=== PATIENT | male | born 1990 | race Hispanic/Latino ===

== ENCOUNTER 2019-05-30 16:04 | Emergency (ER) | payer SELFPAY ==
[2019-05-30] MEDS ORDERED: TETANUS & DIPHTHERIA TOX,ADULT 0.5 ML VIAL ONE (17:08)
[2019-05-30] MEDS ORDERED: LIDOCAINE 1% MPF 5 ML VIAL ONE (17:13)
--- NOTE | 2019-05-30 18:13 | EDPHYS ---
Physician Documentation [facility] Name: Kiel Núñez Age: 29 yrs Sex: Male : 1990 Arrival Date: 05/30/2019 Time: 16:09 Bed 23 Private MD: ED Physician Meño Elder HPI: 05/30 17:08 This 29 yrs old Male presents to ER via Ambulatory with complaints of jmm Laceration To Lip. 17:08 The patient or guardian reports injury. The complaints affect the right upper lip. jmm Onset: The symptoms/episode began/occurred acutely. This is a 29 year old male with no chronic medical conditions that presents to the ED with complaints of laceration to his right inner upper lip. Patient states his face hit a wedge while working under his truck. Denies LOC, denies vomiting. . Historical: - Allergies: 16:13 No Known Allergies; la1 - PMHx: 16:13 None; la1 - Immunization history:: Adult Immunizations up to date. - Social history:: Smoking status: Patient/guardian denies using tobacco. - Ebola Screening: : No symptoms or risks identified at this time. ROS: 17:08 Constitutional: Negative for fever, chills, and weight loss, Cardiovascular: Negative jmm for chest pain, palpitations, and edema, Respiratory: Negative for shortness of breath, cough, wheezing, and pleuritic chest pain. 17:08 Skin: Positive for laceration(s). 17:08 Neuro: Negative for altered mental status, loss of consciousness. 17:08 All other systems are negative. Exam: 17:08 Constitutional: This is a well developed, well nourished patient who is awake, alert, jmm and in no acute distress. 17:08 Eyes: EOMI, no conjunctival erythema appreciated ENT: Moist Mucus Membranes Neck: Trachea midline, Supple Chest/axilla: Normal chest wall appearance and motion. Cardiovascular: Regular rate and rhythm. No edema appreciated Respiratory: Normal respirations, no respiratory distress appreciated Back: Normal ROM Skin: General appearance color normal 17:08 MS/ Extremity: Moves all extremities, no obvious deformities appreciated, no edema noted to the lower extremities Neuro: Awake and alert, normal gait Psych: Behavior is normal, Mood is normal, Patient is cooperative and pleasant 17:08 Head/face: .5 cm laceration noted to the right upper lip. 17:08 ENT: 2 cm laceration noted to the right upper lip mucosa, no active bleeding is appreciated. Vital Signs: 16:13 BP 146 / 99; Pulse 71; Resp 16; Temp 97.1; Pulse Ox 100% on R/A; la1 18:19 BP 132 / 78; Pulse 72; Resp 18; Temp 98.5; Pulse Ox 100% on R/A; mg2 Laceration: 18:09 Wound Repair of 2cm ( 0.8in ) subcutaneous laceration to upper lip. Distal m neuro/vascular/tendon intact. Anesthesia: Local anesthetic administered with 2 mls of 1% lidocaine. Wound prep: Simple cleansing with betadine by me. Skin closed with 4 5-0 fast absorbing gut using simple sutures and sterile technique. Patient tolerated well. MDM: 17:08 Patient medically screened. [facility] 18:09 Data reviewed: vital signs, nurses notes. Counseling: I had a detailed discussion with [facility] the patient and/or guardian regarding: the historical points, exam findings, and any diagnostic results supporting the discharge/admit diagnosis, the need for outpatient follow up, to return to the emergency department if symptoms worsen or persist or if there are any questions or concerns that arise at home. ED course: Patient given wound infection return precautions. . 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 Exp: mg2 01/02/2021. Lot #: [id number]. } Route: IM; Site: right deltoid; 18:04 Follow up: Response: No adverse reaction mg2 17:55 Drug: Lidocaine (1 %) 5 ml {Note: applied by the provider.} Volume: 5 ml; Route: mg2 Infiltration; 18:04 Follow up: Response: No adverse reaction mg2 Disposition: 05/31 07:08 Co-signature as Attending Physician, Meño Elder MD. rn Disposition: 05/30/19 18:12 Discharged to Home. Impression: Oral Laceration. - Condition is Stable. - Discharge Instructions: Facial Laceration. - Prescriptions for Augmentin 875- 125 mg Oral Tablet - take 1 tablet by ORAL route every 12 hours for 10 days; 20 tablet. - Medication Reconciliation Form, Thank You Letter, Antibiotic Education, Prescription Opioid Use form. - Follow up: Private Physician; When: 2 - 3 days; Reason: Recheck today's complaints, Continuance of care, Re-evaluation by your physician. Signatures: Yoel Dominguez PA PA jmm Nieto, Roman, MD MD rn Attema, Lee, RN RN la1 Kranthi Mcguire RN RN mg2 Corrections: (The following items were deleted from the chart) 05/30 18:20 18:12 05/30/2019 18:12 Discharged to Home. Impression: Oral Laceration. Condition is mg2 Stable. Forms are Medication Reconciliation Form, Thank You Letter, Antibiotic Education, Prescription Opioid Use. Follow up: Private Physician; When: 2 - 3 days; Reason: Recheck today's complaints, Continuance of care, Re-evaluation by your physician. aristeo
--- NOTE | 2019-05-30 18:13 | ER ---
Nurse's Notes [facility] Name: Kiel Núñez Age: 29 yrs Sex: Male : 1990 Arrival Date: 05/30/2019 Time: 16:09 Bed 23 Private MD: Diagnosis: Oral Laceration Presentation: 05/30 16:12 Presenting complaint: Patient states: I was working on a car and the wedge hit me above la1 the lip but its worse in the inside of my lip. Transition of care: patient was not received from another setting of care. Complicating Factors: There are no complicating factors for this patient. Onset of symptoms was May 30, 2019. Risk Assessment: Do you want to hurt yourself or someone else? Patient reports no desire to harm self or others. Initial Sepsis Screen: Does the patient meet any 2 criteria? No. Patient's initial sepsis screen is negative. Does the patient have a suspected source of infection? No. Patient's initial sepsis screen is negative. Care prior to arrival: None. 16:12 Method Of Arrival: Ambulatory la1 16:12 Acuity: RAFAEL 4 la1 Historical: - Allergies: 16:13 No Known Allergies; la1 - PMHx: 16:13 None; la1 - Immunization history:: Adult Immunizations up to date. - Social history:: Smoking status: Patient/guardian denies using tobacco. - Ebola Screening: : No symptoms or risks identified at this time. Screenin:38 Abuse screen: Denies threats or abuse. Denies injuries from another. Nutritional mg2 screening: No deficits noted. Tuberculosis screening: No symptoms or risk factors identified. Fall Risk None identified. Assessment: 17:36 General: Appears in no apparent distress. comfortable, Behavior is calm, cooperative. mg2 Pain: Complains of pain in face and inner side of the upper lip. Neuro: Level of Consciousness is awake, alert, obeys commands, Oriented to person, place, time, situation. Cardiovascular: Capillary refill < 3 seconds Patient's skin is warm and dry. Respiratory: Airway is patent Respiratory effort is even, unlabored, Respiratory pattern is regular, symmetrical. GI: No signs and/or symptoms were reported involving the gastrointestinal system. : No signs and/or symptoms were reported regarding the genitourinary system. EENT: open wound in the inner side of the upper lip. Derm: Skin is pink, warm \T\ dry. normal. Musculoskeletal: Circulation, motion, and sensation intact. Capillary refill < 3 seconds. Injury Description: Laceration sustained to face and inner side of the right upper lip is clean, not bleeding, was sustained 1-2 hours ago. is bleeding no active bleeding noted. Vital Signs: 16:13 BP 146 / 99; Pulse 71; Resp 16; Temp 97.1; Pulse Ox 100% on R/A; la1 18:19 BP 132 / 78; Pulse 72; Resp 18; Temp 98.5; Pulse Ox 100% on R/A; mg2 ED Course: 16:09 Patient arrived in ED. as 16:13 Triage completed. la1 16:13 Arm band placed on right wrist. la1 16:55 Kranthi Mcguire, JEWEL is Primary Nurse. mg2 17:02 Yoel Dominguez PA is PHCP. [facility] 17:02 Meño Elder MD is Attending Physician. [facility] 17:38 Patient did not have IV access during this emergency room visit. mg2 17:39 Patient has correct armband on for positive identification. mg2 18:04 Assist provider with laceration repair on inner aspiect of the upper lip that was 2.5 mg2 cm. or less using sutures. Set up tray. Performed by Yoel ROJO Patient tolerated well. 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 Exp: mg2 01/02/2021. Lot #: [id number]. } Route: IM; Site: right deltoid; 18:04 Follow up: Response: No adverse reaction mg2 17:55 Drug: Lidocaine (1 %) 5 ml {Note: applied by the provider.} Volume: 5 ml; Route: mg2 Infiltration; 18:04 Follow up: Response: No adverse reaction mg2 Outcome: 18:12 Discharge ordered by . aristeo 18:19 Discharged to home ambulatory. mg2 18:19 Condition: stable 18:19 Discharge instructions given to patient, Instructed on discharge instructions, follow up and referral plans. medication usage, wound care, Demonstrated understanding of instructions, follow-up care, medications, wound care, Prescriptions given X 1. 18:20 Patient left the ED. mg2 Signatures: Yoel Dominguez PA PA jmm Martinez, Amelia as Attema, Valeriy, RN RN la1 Kranthi Mcguire, RN RN mg2
[2019-05-30 18:28] VITALS: O2SAT 100
[2019-05-30 18:29] VITALS: BP 132/78; TEMP 98.5
== END 2019-05-30 18:20 | disposition home or self-care (01) ==
LOC: ER 16:04
PROC: 0CQ0XZZ Repair Upper Lip, External Approach (ICD-10-PCS; principal; 2019-05-30)
DX: S01.511A Laceration without foreign body of lip, initial encounter (principal); W22.8XXA Striking against or struck by other objects, initial encounter; Y93.89 Activity, other specified; Y92.9 Unspecified place or not applicable
CPT/HCPCS: 90471; 90714; 99283